=== PATIENT | male | born 1960 | race Caucasian/White ===

== ENCOUNTER → 2018-05-04 | Outpatient (CLI) | payer OTHER | END | disposition home or self-care (01) | LOC: LAB 15:30 → LAB SHORT 15:30 | DX: B35.1 Tinea unguium (principal) | CPT/HCPCS: 87102 ==

== ENCOUNTER → 2018-05-04 | Outpatient (CLI) | payer OTHER | END | disposition home or self-care (01) | LOC: PLD 11:05 → LAB SHORT 11:05 | DX: D22.72 Melanocytic nevi of left lower limb, including hip (principal) | CPT/HCPCS: 88305 ==

== ENCOUNTER → 2020-12-17 | Outpatient (CLI) | payer OTHER ==
[~2020-12-17] MED LIST: ATOR20 PO; Diflucan150 MG; ETOD500; LEVSOD25 PO; LOSA50; PROP10; Primidone50 MG
== END | disposition home or self-care (01) ==
LOC: PLD 11:23 → LAB SHORT 11:23
DX: D22.5 Melanocytic nevi of trunk (principal)
CPT/HCPCS: 88305

== ENCOUNTER 2020-12-25 08:34 | Day surgery (SDC) | payer OTHER ==
[~2020-12-25] VITALS: Ht 185.4 cm; Wt 85.1 kg
== END 2020-12-25 10:55 | disposition home or self-care (01) ==
LOC: ORSCSDS 08:34
PROVIDERS: Surgery
PROC: 0DBL8ZX Excision of Transverse Colon, Via Natural or Artificial Opening Endoscopic, Diagnostic (ICD-10-PCS; principal; 2020-12-25 09:45)
DX: Z12.11 Encounter for screening for malignant neoplasm of colon (principal); D12.3 Benign neoplasm of transverse colon; I10 Essential (primary) hypertension; E03.9 Hypothyroidism, unspecified; E78.5 Hyperlipidemia, unspecified; Z79.899 Other long term (current) drug therapy
CPT/HCPCS: 88305; J2704; J7120

== ENCOUNTER 2023-03-04 06:39 | Inpatient (IN) | payer OTHER ==
[~2023-03-04] VITALS: Ht 175.3 cm; Wt 83.9 kg
[2023-03-04] VITALS (20 sets, daily range): BP systolic 97–151; BP diastolic 60–94
[~2023-03-04 06:39] MED LIST changes: -ETOD500; +ETOD500 PO; -LOSA50; +LOSA50 PO; -PROP10; +PROP10 PO
[2023-03-04 06:56] LABS: Hematocrit 45.5 % (37.0-53.0); Hemoglobin 15.4 g/dL (13.5-17.5); Mean Corpuscular HGB 32.2 pg (26.0-34.0); Mean Corpuscular HGB Conc 33.8 g/dL (31.5-36.5); Mean Corpuscular Volume 95 fL (80-100); Mean Platelet Volume 10.6 fL (9.1-12.4); Platelet Count 153 K/mm3 (150-400); RDW Coefficient Variation 12.2 % (11.7-14.2); RDW Standard Deviation 42.7 fL (35.1-46.3); Red Blood Cell Count 4.78 M/mm3 (4.30-5.90); White Blood Cell Count 6.02 K/mm3 (4.00-11.30)
[2023-03-04 07:00] LABS: Calcium, Ionized (POC) 1.18 mmol/L (1.10-1.46); Chloride (POC) 102 mmol/L (98-108); Glucose (ISTAT POC) 126 mg/dL (70-99); Hemoglobin (POC) 16.3 g/dL (13.5-17.5); Potassium (POC) 3.6 mmol/L (3.5-5.5); Sodium (POC) 141 mmol/L (135-148); Total CO2 (POC) 28 mmol/L (21-32)
[2023-03-04 07:16] LABS: International Normalized Ratio 1.05
[2023-03-04 07:21] LABS: Alanine Aminotransfer (ALT/SGP 31 U/L (12-78); Albumin, Blood 3.5 g/dL (3.4-5.0); Albumin/Globulin Ratio 1.1 (0.8-1.8); Alk Phos 60 U/L (50-136); Anion Gap 5 mmol/L (6-16); Aspartate Aminotrans (AST/SGOT 32 U/L (12-37); Bilirubin, Total 0.9 mg/dL (0.1-1.0); Blood Urea Nitrogen 36 mg/dL (8-24); Bun/Creatinine Ratio 35.3 (12.0-20.0); CHOL/HDL RATIO 4.2; CO2, Blood 29 mmol/L (21-32); Calcium, Blood 8.9 mg/dL (8.5-10.1); Chloride, Blood 107 mmol/L (98-108); Cholesterol 216 mg/dL (50-200); Creatinine, Blood 1.02 mg/dL (0.60-1.20); Globulin, Blood 3.1 g/dL (2.2-4.0); Glomerular Filtration Rate 83 (60-); Glucose, Blood 141 mg/dL (70-99); HDL Cholesterol 51 mg/dL (>39); LDL/HDL RATIO 2.8; Low Density Lipoprotein Chol 143 mg/dL (0-110); Magnesium, Blood 2.4 mg/dL (1.6-2.4); Sodium, Blood 141 mmol/L (136-145); Total Protein, Blood 6.6 g/dL (6.4-8.2); Triglycerides 110 mg/dL (30-160); Very Low Density Lipoprot Chol 22 mg/dL (6-32)
[2023-03-04] MEDS ORDERED: GABA300 PO ×2 (09:21)
[2023-03-04] MEDS ORDERED: NIAC500 PO (09:22)
[2023-03-04] MEDS ORDERED: VITAMIN D31000 UNI1 PO (09:23)
[2023-03-04] MEDS ORDERED: FISH OIL 1,2001 EAC7 PO (09:23)
--- NOTE | 2023-03-04 17:39 | NUR ---
SUMMARY PT ARRIVED TO ICU 3 FROM COMPLIANCE ADMINISTRATOR AT 0820. PT IS A/O X4. DENIES CP OR PRESSURE TODAY. NO DIZZINESS OR SOB. R RADIAL ACCESS SITE WITH TR BAND. BAND WAS DEFLATED AND REMOVED WITHOUT ISSUE. HAS ARM BOARD IN PLACE A REMINDER TO KEEP WRIST IMMOBILIZED. PT HAS FINE MOTOR TREMORS AT BASELINE. UP TO CHAIR THIS AFTERNOON WITH MINIMAL ASSIST. DR. DACOSTA CAME BY TO SEE PT AND DID A LOT OF EDUCATION WITH MEDICATIONS AND STENT PLACEMENT WITH PT AND FAMILY. NO SIGN OF DISTRESS. CALL LIGHT IN REACH AND PT USES APPROPRIATELY.
--- NOTE | 2023-03-04 19:15 | NUR ---
ASSUMED CARE PATIENT SITTING UP IN RECLINER WITH AT SIDE. PATIENT IS CONVERSING WITH AND IS A&O X 4. DENIES CP AND SOB. NO MEDICATIONS INF AT THIS TIME. MONITOR SHOWS SINUS RHYTHM WITH RATE IN LOW 60'S. SPO2 GREATER THAN 90%. RT RADIAL ACCESS SITE IS COVERED WITH OPSITE-C/D/I. NO SWELLING, BLEEDING, HEMATOMA, OR PAIN AT THE SITE. ARMBOARD TO RT WRIST. REPORT COMPLETED WITH NICK ISBELL.
[2023-03-05] VITALS: BP 116/73
[2023-03-05 01:00] VITALS: BP 104/70
[2023-03-05 02:00] VITALS: BP 106/58
[2023-03-05 03:00] VITALS: BP 116/56
[2023-03-05 03:26] LABS: BASOPHILS ABSOLUTE AUTO 0.01 K/mm3 (0.00-0.23); BASOPHILS PERCENT AUTO 0 % (0-2); EOSINOPHILS ABSOLUTE AUTO 0.16 K/mm3 (0.00-0.68); EOSINOPHILS PERCENT AUTO 2 % (0-6); Hematocrit 44.2 % (37.0-53.0); Hemoglobin 14.6 g/dL (13.5-17.5); IMMATURE GRAN ABSOLUTE AUTO 0.02 K/mm3 (0.00-0.10); IMMATURE GRAN PERCENT AUTO 0 % (0-1); LYMPHOCYTES ABSOLUTE AUTO 1.14 K/mm3 (0.84-5.20); LYMPHOCYTES PERCENT AUTO 14 % (21-46); MONOCYTES ABSOLUTE AUTO 1.01 K/mm3 (0.16-1.47); MONOCYTES PERCENT AUTO 13 % (4-13); Mean Corpuscular HGB 31.5 pg (26.0-34.0); Mean Corpuscular Volume 96 fL (80-100); Mean Platelet Volume 10.6 fL (9.1-12.4); NEUTROPHILS ABSOLUTE AUTO 5.62 K/mm3 (1.96-9.15); NEUTROPHILS PERCENT AUTO 71 % (41-73); Platelet Count 139 K/mm3 (150-400); RDW Coefficient Variation 12.4 % (11.7-14.2); RDW Standard Deviation 43.7 fL (35.1-46.3); Red Blood Cell Count 4.63 M/mm3 (4.30-5.90); White Blood Cell Count 7.96 K/mm3 (4.00-11.30)
[2023-03-05 03:54] LABS: Bun/Creatinine Ratio 30.9 (12.0-20.0); Creatinine, Blood 0.88 mg/dL (0.60-1.20); Potassium, Blood 3.7 mmol/L (3.5-5.5)
[2023-03-05 04:00] VITALS: BP 105/61
--- NOTE | 2023-03-05 04:09 | NUR ---
SHIFT SUMMARY PATIENT SLEPT THROUGHOUT NIGHT. DENIED CP AND DYSPNEA. MONITOR REMAINED IN SINUS RHYTHM TO SINUS PETER. BP STABLE. NO EVENTS DURING THE SHIFT.
[2023-03-05 07:00] VITALS: BP 102/63
--- NOTE | 2023-03-05 08:10 | NUR ---
PT UP TO BSC THEN CHAIR THIS AM. STEADY ON FEET AND INDEP WITH AMBULATION. PT HAS BEEN DOING HIS STRETCHING EXERCISES AT BEDSIDE. NO CP OR SOB. R RADIAL SITE STABLE. PT IS PROACTIVE AND ASKS QUESTIONS ABOUT MEDS AND PLAN OF CARE. CALLED DR. DACOSTA THIS AM AND HE OK WITH PT DISCHARGING TODAY. WILL CALL DR. HERNANDEZ TO NOITIFY HIM.
[2023-03-05] MEDS ORDERED: ASPI81CH PO (12:44)
[2023-03-05] MEDS ORDERED: TICA90TA PO (12:45)
--- NOTE | 2023-03-05 12:45 | NUR ---
NOTICED PT'S HR DIPPED TO 45. WENT IN TO CHECK ON PT, PT RESTING IN BED. PT STATES HE TOOK HIS HOME DOSE OF PROPRANOLOL BECAUSE HE THOUGHT HE WAS TOLD BY DR. HERNANDEZ TO TAKE IT. CALLED DR. HERNANDEZ TO NOTIFY HIM AND HE SAID IT WAS STILL OK TO D/C PT HOME. DENIES DIZZINESS OR SOB, NO CP.
--- NOTE | 2023-03-05 14:11 | NUR ---
DISCHARGE PT A/O X4. DENIES CP. HAS BEEN AMBULATING IN ROOM INDEP. R RADIAL ACCESS SITE IS STABLE. AND DAUGHTER AT BEDSIDE FOR DISCHARGE INSTRUCTIONS. CALLED CARDIOLOGY OFFICE TO SET UP FOLLOW UP APPOINTMENT AND THEY WILL BE CONTACTING THE PT. PT AND VERBALIZE UNDERSTANDING OF D/C INSTRUCTIONS. PT TAKEN OUT TO VEHICLE VIA W/C, NO SIGN OF DISTRESS HE LEAVES THE UNIT.
== END 2023-03-05 13:35 | disposition home or self-care (01) | DRG 247 ==
LOC: ER 06:39 → ICUE 07:00
PROVIDERS: Emergency Medicine; ADMIT Internal Medicine Cardiovascular Disease
PROC: 027035Z Dilation of Coronary Artery, One Artery with Two Drug-eluting Intraluminal Devices, Percutaneous Approach (ICD-10-PCS; principal; 2023-03-04)
PROC: 4A023N7 Measurement of Cardiac Sampling and Pressure, Left Heart, Percutaneous Approach (ICD-10-PCS; 2023-03-04)
PROC: B2111ZZ Fluoroscopy of Multiple Coronary Arteries using Low Osmolar Contrast (ICD-10-PCS; 2023-03-04)
PROC: B24BZZ3 Ultrasonography of Heart with Aorta, Intravascular (ICD-10-PCS; 2023-03-04)
DX: I21.19 ST elevation (STEMI) myocardial infarction involving other coronary artery of inferior wall (principal); I10 Essential (primary) hypertension; E78.5 Hyperlipidemia, unspecified; G25.0 Essential tremor; N40.0 Benign prostatic hyperplasia without lower urinary tract symptoms; I25.10 Atherosclerotic heart disease of native coronary artery without angina pectoris; G43.909 Migraine, unspecified, not intractable, without status migrainosus; K58.9 Irritable bowel syndrome, unspecified; E03.9 Hypothyroidism, unspecified; C44.90 Unspecified malignant neoplasm of skin, unspecified; M54.9 Dorsalgia, unspecified; G89.29 Other chronic pain; M19.91 Primary osteoarthritis, unspecified site; N52.9 Male erectile dysfunction, unspecified; Z98.890 Other specified postprocedural states; Z79.899 Other long term (current) drug therapy
CPT/HCPCS: 36415; 76937; 80047; 80048; 80053; 80061; 83735; 84484; 85014; 85025; 85027; 85347; 85610; 85730; 86850; 86900; 86901; 93005; 93010; 93306; 93454; 99152; 99153; 99285-25; A9270; C1725; C1769; C1874; C1887; C1894; C9606; J0461; J1644; J2250; J2270; J2405; J3010; J3475; J7030; J7050; Q9967